=== PATIENT | female | born 1995 | race Caucasian/White ===

== ENCOUNTER 2018-09-08 16:44 | Inpatient (IN) | payer MEDICAID ==
[~2018-09-08] VITALS: Ht 172.7 cm; Wt 90.7 kg
[~2018-09-08 16:44] MED LIST: ACET-1966 PO; CALC-515 PO; PREN-187 PO
[2018-09-08 17:15] VITALS: BP 125/75; Ht 172.7 cm; Wt 90.7 kg
[2018-09-08] MEDS ORDERED: FAMOTIDINE(*) 20MG/50ML PREMIX 50 ML IVPB PRN (17:32)
[2018-09-08] MEDS ORDERED: OXYTOCIN 30 UNIT/D5LR 500 ML 500 ML IV PRN (17:32)
[2018-09-08] MEDS ORDERED: BUPIVACAINE 0.25% MPF INJ EPI PRN (17:35)
[2018-09-08] MEDS ORDERED: FENTANYL/ROPIVACAINE 100 ML BAG EPI PRN (17:35)
[2018-09-08] MEDS ORDERED: fentaNYL CITR 100 MCG/2 ML AMP IT PRN (17:35)
[2018-09-08] MEDS ORDERED: LIDO/EPI 2% MPF 1:200,000 20ML EPI PRN (17:35)
[2018-09-08] MEDS ORDERED: LIDOCAINE 1% LOCAL 300 MG/30ML INJ PRN (17:35)
[2018-09-08] MEDS ORDERED: FLUSH 10 ML SYR IVP PRN (17:35)
[2018-09-08] MEDS ORDERED: METOCLOPRAMIDE 10 MG/2 ML SDV IVP PRN (17:35)
[2018-09-08] MEDS ORDERED: fentaNYL CITR 100 MCG/2 ML AMP IVP PRN (17:35)
[2018-09-08] MEDS ORDERED: LIDOCAINE/SOD BICARB 8.4% SYR SC PRN (17:35)
[2018-09-08] MEDS ORDERED: BUPIVACAINE 0.5% INJ 30ML VIAL EPI PRN (17:35)
[2018-09-08] MEDS ORDERED: LIDOCAINE/PF 2% 200MG/10ML AMP 200 MG/10 ML AMPUL EPI PRN (17:35)
[2018-09-08 18:15] LABS: PLATELET COUNT, AUTOMATED 176 K/uL (150-450)
--- NOTE | 2018-09-08 18:59 | OB Delivery Note ---
Delivery Note Vaginal Delivery Type: Spont. Vaginal Delivery Delivery Date: Sep 08, 2018 Delivery Time: 18:46 Estimated Gestational Age(wks): 39.4 Sex: Female Weight (gms): 3525 [address] Apgars: 1 Minute (8), 5 Minute (9) Estimated Blood Loss: 200 Delivery Complications: Precipitous Notes: Admitted at 6 cm dilation from the office where she reported today for visit. Has been having contractions today. Membranes intact. Progressed through active phase labor very quickly and SROM followed by strong urge to pus h. Completely dilated at 1840. One push with contraction brought baby to and delivery in TRIPP position over intact perineum. Shoulders delivered spontaneous and placenta delivered spontaneous and intact. No complications. Uterus massaged firm. Healthcare Risk Control Consultant in Attendence: No Copies to: PHILIP ECHAVARRIA MD ; PHILIP ECHAVARRIA MD Sep 08, 2018 18:59
[2018-09-08] MEDS ORDERED: GLYCERIN/WITCH HAZEL LEAF 1 PK TP PRN (19:00)
[2018-09-08] MEDS ORDERED: BENZOCAINE 20% 60 ML BTL TP PRN (19:00)
[2018-09-08] MEDS ORDERED: HYDROCORTISONE 2.5% CR 30GM TB PR PRN (19:00)
[2018-09-08] MEDS ORDERED: MAGNESIUM HYDROXIDE* 30ML UDCP PO PRN (19:00)
[2018-09-08] MEDS ORDERED: ACETAMINOPHEN 325 MG TAB PO PRN (19:00)
[2018-09-08] MEDS ORDERED: LANOLIN OINT 7 GM TUBE TP PRN (19:00)
[2018-09-08] MEDS: LR(*) 1000 ML BAG 1,000 ML IV SCH (19:14)
[2018-09-08] MEDS: IBUPROFEN 800 MG TAB PO SCH (19:14)
[2018-09-08] MEDS: DOCUSATE CALCIUM 240 MG CAP PO SCH (21:45)
[2018-09-08 22:50] VITALS: BP 113/58
[2018-09-09] MEDS: LR(*) 1000 ML BAG 1,000 ML IV SCH (03:32)
[2018-09-09] MEDS: IBUPROFEN 800 MG TAB PO SCH ×3 (04:00→22:46)
[2018-09-09 04:20] VITALS: BP 117/56
--- NOTE | 2018-09-09 09:13 | OB/GYN Progress Note ---
OB Subjective Progress Notes Subjective Doing well today. Little pain and bleeding light. Baby had some mucus plugging she was worried about but resolved now. GI: NEG Nausea : Voiding Well Pain: Mild OB Objective Physical Exam Vital Signs Date Time Temp Pulse Resp B/P (MAP) Pulse Ox O2 Delivery O2 Flow Rate FiO2 09/09/18 04:20 97.7 67 18 117/56 (76) Room Air 09/08/18 17:15 97 Intake and Output 09/09/18 07:00 Intake Total 900 ml Output Total 1400 ml Balance -500 ml Intake IV Total 900 ml Output Urine Total 1400 ml # Voids 2 General Appearance: Alert/Awake/No Acute Distress Neurological: No Gross deficits Cardiovascular: Normal Rhythm & Peripheral Pulses, Regular Rate and Rhythm Respiratory: No Respiratory Distress, Clear to Auscultation Abdomen: Soft, Non-Tender, Non-Distended, Fundus Firm, Non-Tender Extremities: No Cyanosis,Clubbing or Edema Integumentary: Skin Intact without Lesions or Rash Psychological: Alert & Oriented X3, Appropriate Mood & Affect Result Diagram: 09/09/18 0605 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 PHILIP ECHAVARRIA MD Sep 09, 2018 09:13
[2018-09-09 09:15] VITALS: BP 113/71
--- NOTE | 2018-09-09 09:17 | History & Physical ---
History of Present Illness Age of Patient: 23 : 3 Para or TPAL: 1 EDC per LMP: Sep 11, 2018 Estimated Gestational Age: 39.5 Chief Complaint Labor History of Present Illness Pt presented to office for routine OB check and was found to be in labor having regular painful contractions and 5-6 cm dilated. She was sent to [facility] straight away. has been uncomplicated. Past Medical, Surgical, Family and Obstetric Histories reviewed. Please see ACOG chart. History Allergies: Coded Allergies: No Known Drug Allergies (Unverified , 09/08/18) Med Rec Home Meds Reported Medications Acetaminophen (TYLENOL) 325 Mg Tablet, 325 MG PO, TAB 09/03/18 Calcium Carbonate (TUMS) 200 Mg Tab.chew, 200 MG PO, TAB.CHEW 09/03/18 #103/Iron Fumarate/Fa ( TABLET) 1 Each Tablet, 1 EACH PO 09/03/18 Review of Systems All Systems Reviewed/Normal: Yes, Except as Noted Exam General Exam Vital Signs Vital Signs Date Time Temp Pulse Resp B/P (MAP) Pulse Ox O2 Delivery O2 Flow Rate FiO2 09/09/18 04:20 97.7 67 18 117/56 (76) Room Air 09/08/18 17:15 97 General Apperance: Alert/Awake/No Acute Distress Neuro: No Gross deficits Cardiovascular: Regular Rate and Rhythm Respiratory: No Respiratory Distress Abdomen: Soft, Non-Tender, Non-Distended, Gravid - Non-Tender Integumentary: Skin Intact without Lesions or Rash Psychological: Alert & Oriented X3, Appropriate Mood & Affect Vaginal Discharge/Fluid?: Bloody Show Cervical Dialation: 6 Fetus FHT Category: I Medical Decision Making Data Points Result Diagram: 09/09/18 0605 VTE Prophylasis: Adult Deep Vein Thrombosis/Pulmonary: No Pharmacological Contraindicati: Pt at Low Risk for VTE Mechanical Contraindications: Pt at Low Risk for VTE 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
[2018-09-09] MEDS: DOCUSATE CALCIUM 240 MG CAP PO SCH ×2 (10:36→21:06)
[2018-09-09 12:36] VITALS: BP 113/55
[2018-09-09 16:05] VITALS: BP 111/65
[2018-09-09 20:00] VITALS: BP 116/64
[2018-09-10 04:33] VITALS: BP 110/76
[2018-09-10] MEDS: IBUPROFEN 800 MG TAB PO SCH (06:10)
--- NOTE | 2018-09-10 08:18 | OB/GYN Progress Note ---
OB Subjective Progress Notes Subjective Feeling well. Pain well controlled and bleeding light. Ready to go home. GI: NEG Nausea : Voiding Well Pain: Mild OB Objective Physical Exam Vital Signs Date Time Temp Pulse Resp B/P (MAP) Pulse Ox O2 Delivery O2 Flow Rate FiO2 09/10/18 04:33 97.0 64 12 110/76 (87) 09/09/18 20:00 Room Air 09/09/18 16:05 95 Intake and Output 09/10/18 07:00 Intake Total 1020 ml Balance 1020 ml Intake Oral 1020 ml # Voids 2 General Appearance: Alert/Awake/No Acute Distress Neurological: No Gross deficits Cardiovascular: Normal Rhythm & Peripheral Pulses, Regular Rate and Rhythm Respiratory: No Respiratory Distress Abdomen: Soft, Non-Tender, Non-Distended, Fundus Firm, Non-Tender Extremities: No Cyanosis,Clubbing or Edema Integumentary: Skin Intact without Lesions or Rash Psychological: Alert & Oriented X3, Appropriate Mood & Affect Result Diagram: 09/09/18 0605 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
[2018-09-10] MEDS ORDERED: IBUP800T37 PO (08:19)
--- NOTE | 2018-09-10 08:21 | OB/GYN Discharge Summary ---
Discharge Summary Reason for Hosp/Final Diag: (1) care and examination immediately after delivery (2) 39 weeks gestation of [place] Vital Signs Vital Signs Date Time Temp Pulse Resp B/P (MAP) Pulse Ox O2 Delivery O2 Flow Rate FiO2 09/10/18 04:33 97.0 64 12 110/76 (87) 09/09/18 20:00 Room Air 09/09/18 16:05 95 Weight (Pounds): 200 Result Diagram: 09/09/18604 Condition: Improved Discharge: Home, Self [facility] Meds Reported Medications Acetaminophen (TYLENOL) 325 Mg Tablet, 325 MG PO, TAB 09/03/18 Calcium Carbonate (TUMS) 200 Mg Tab.chew, 200 MG PO, TAB.CHEW 09/03/18 #103/Iron Fumarate/Fa ( TABLET) 1 Each Tablet, 1 EACH PO 09/03/18 Follow up with: Dr. Kelley [phone] Follow up in: 6 wks PP or PO Discharge Diet: As Tolerates Discharge Activity: As Tolerates, No Heavy Lifting x 6 wks, No Heavy Lifting > 10lb, Pelvic Rest Copies to: PHILIP KELLEY MD ; PHILIP KELLEY MD Sep 10, 2018 08:21
[2018-09-10 09:00] VITALS: BP 119/73
[2018-09-10] MEDS: DOCUSATE CALCIUM 240 MG CAP PO SCH (09:01)
[2018-09-10] MEDS ORDERED: INFLUENZA VIRUS VAC 0.5ML SYR IM ONLY ONE (19:00)
[2018-09-10] MEDS ORDERED: MEASLES,MUMP,RUBELLA VAC 0.5ML SUBQ ONE (19:00)
[2018-09-10] MEDS ORDERED: DIPHTH/TETANUS/ACEL. PERTUSSIS IM ONLY ONE (19:00)
== END 2018-09-10 10:50 | disposition home or self-care (01) | DRG 807 ==
LOC: OB 16:44
PROVIDERS: ADMIT Obstetrics & Gynecology; ATTEND Obstetrics & Gynecology
PROC: 10E0XZZ Delivery of Products of Conception, External Approach (ICD-10-PCS; principal; 2018-09-08)
DX: O62.3 Precipitate labor (principal); Z37.0 Single live birth; Z3A.39 39 weeks gestation of pregnancy
CPT/HCPCS: 36415; 85025; 85027; 86850; 86900; 86901; J2590; J7120